=== PATIENT | male | born 1955 | race Caucasian/White ===

== ENCOUNTER 2017-10-24 14:49 | Emergency (ER) | payer OTHER ==
[2017-10-24 15:23] VITALS: BP 134/83
--- NOTE | 2017-10-24 16:10 | XRAY Report ---
Procedure Date: 10/24/2017 Accession Number: [id number] / [id number] Procedure: XR - Ankle 3 View RT CPT Code: FULL RESULT: EXAM: RIGHT ANKLE RADIOGRAPHY EXAM DATE: 10/24/2017 03:37 PM. CLINICAL HISTORY: Trauma. COMPARISON: None. TECHNIQUE: 3 views. FINDINGS: Bones: No acute fractures or suspicious bone lesions. Joints: No subluxations. Soft Tissues: Unremarkable. IMPRESSION: No acute radiographic abnormalities. RADIA
--- NOTE | 2017-10-24 16:18 | XRAY Report ---
Procedure Date: 10/24/2017 Accession Number: [id number] / [id number] Procedure: XR - Knee 4 View RT CPT Code: FULL RESULT: EXAM: RIGHT KNEE RADIOGRAPHY EXAM DATE: 10/24/2017 03:56 PM. CLINICAL HISTORY: Trauma. COMPARISON: None. TECHNIQUE: 4 Views. FINDINGS: Bones: No acute fractures or suspicious bone lesions. Joints: No effusion. No subluxations. Soft Tissues: Unremarkable. IMPRESSION: No acute radiographic abnormalities. RADIA
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
== END 2017-10-24 16:43 | disposition home or self-care (01) ==
LOC: EDSEX 14:49 → ED 14:49
DX: S83.91XA Sprain of unspecified site of right knee, initial encounter (principal); S90.01XA Contusion of right ankle, initial encounter; W23.1XXA Caught, crushed, jammed, or pinched between stationary objects, initial encounter; Y93.89 Activity, other specified; Y92.009 Unspecified place in unspecified non-institutional (private) residence as the place of occurrence of the external cause
CPT/HCPCS: 99282; 99283